=== PATIENT | male | born 1965 | race Caucasian/White ===

== ENCOUNTER 2017-11-12 10:30 | Observation (INO) | payer OTHER, MEDICARE ==
[~2017-11-12] VITALS: Ht 188 cm; Wt 118.6 kg
[2017-11-12 11:01] LABS: BASOPHILS ABSOLUTE AUTO 0.03 K/mm3 (0.00-0.23); BASOPHILS PERCENT AUTO 0 % (0-2); EOSINOPHILS ABSOLUTE AUTO 0.18 K/mm3 (0.00-0.68); EOSINOPHILS PERCENT AUTO 1 % (0-6); Hematocrit 42.4 % (37.0-53.0); Hemoglobin 14.7 g/dL (13.5-17.5); IMMATURE GRAN ABSOLUTE AUTO 0.08 K/mm3 (0.00-0.10); IMMATURE GRAN PERCENT AUTO 1 % (0-1); LYMPHOCYTES ABSOLUTE AUTO 1.92 K/mm3 (0.84-5.20); LYMPHOCYTES PERCENT AUTO 15 % (21-46); MONOCYTES ABSOLUTE AUTO 0.84 K/mm3 (0.16-1.47); MONOCYTES PERCENT AUTO 7 % (4-13); Mean Corpuscular HGB 32.2 pg (26.0-34.0); Mean Corpuscular HGB Conc 34.7 g/dL (31.5-36.5); Mean Corpuscular Volume 93 fL (80-100); Mean Platelet Volume 10.2 fL (9.1-12.4); NEUTROPHILS ABSOLUTE AUTO 9.53 K/mm3 (1.96-9.15); NEUTROPHILS PERCENT AUTO 76 % (41-73); Platelet Count 190 K/mm3 (150-400); RDW Coefficient Variation 11.9 % (11.7-14.2); RDW Standard Deviation 40.3 fL (35.1-46.3); Red Blood Cell Count 4.57 M/mm3 (4.30-5.90); White Blood Cell Count 12.58 K/mm3 (4.00-11.30)
[2017-11-12 11:22] LABS: Base Excess Venous -2.1 mmol/L; Bicarbonate Venous 22.1 mmol/L (24.0-30.0); PCO2 Venous 46.4 mmHg (38-42); PO2 Venous 51.9 mmHg (38-42); pH Blood Venous 7.32 (7.34-7.37)
[2017-11-12 11:25] LABS: Alanine Aminotransfer (ALT/SGP 77 U/L (12-78); Albumin, Blood 3.8 g/dL (3.4-5.0); Albumin/Globulin Ratio 1.2 (0.8-1.8); Alk Phos 79 U/L (50-136); Anion Gap 7 mmol/L (6-16); Aspartate Aminotrans (AST/SGOT 40 U/L (12-37); Bilirubin, Total 0.5 mg/dL (0.1-1.0); Blood Urea Nitrogen 19 mg/dL (8-24); Bun/Creatinine Ratio 15.7 (12.0-20.0); CO2, Blood 24 mmol/L (21-32); Calcium, Blood 8.7 mg/dL (8.5-10.1); Chloride, Blood 110 mmol/L (98-108); Creatinine, Blood 1.21 mg/dL (0.60-1.20); Ethanol (Alcohol), Blood, Med <3 mg/dL; Globulin, Blood 3.1 g/dL (2.2-4.0); Glomerular Filtration Rate >60 (60-); Glucose, Blood 268 mg/dL (70-99); Potassium, Blood 4.1 mmol/L (3.5-5.5); Sodium, Blood 141 mmol/L (136-145); Total Protein, Blood 6.9 g/dL (6.4-8.2); Troponin I <0.015 ng/mL (0.000-0.040)
[2017-11-12 12:42] LABS: U Amphetamine Screen Not Detected; U Barbituate Screen Not Detected; U Benzodiazapine Screen Not Detected; U Buprenorphine Screen Not Detected; U Cannabinoids Screen DETECTED; U Cocaine Screen Not Detected; U Methadone Screen Not Detected; U Methamphetamine Screen Not Detected; U Opiates Screen Not Detected; U Oxycodone Screen Not Detected; U Phencyclidine Screen Not Detected; U Propoxyphene Screen Not Detected
[2017-11-12 13:37] LABS: PCO2 Arterial 38.8 mmHg (35-45); PO2 Arterial 83.6 mmHg (80-100); pH Blood Arterial 7.37 (7.35-7.45)
[2017-11-12 14:40] LABS: International Normalized Ratio 1.04; Prothrombin Time Results 10.8 Sec (9.7-11.5)
[2017-11-12] MEDS ORDERED: [UNRECOGNIZED DRUG - OTHER] PO (16:36)
[2017-11-12] MEDS ORDERED: CLON1 PO (16:36)
[2017-11-12] MEDS ORDERED: Acetaminophen325 M1 PO (16:38)
[2017-11-12] MEDS ORDERED: IBUP400 PO (16:39)
[2017-11-12] MEDS ORDERED: LISI20 PO (16:40)
[2017-11-12] MEDS ORDERED: BENGAY113 GM TOP (16:42)
[2017-11-12] MEDS ORDERED: Omeprazole20 M1 PO (16:43)
[2017-11-12] MEDS ORDERED: QUET300 PO (16:45)
[2017-11-12 18:53] LABS: Source, Urine Clean Catch
[2017-11-12 18:55] LABS: Appearance, Urine Clear (Clear); Bilirubin, Urine Neg (Neg); Blood, Urine Neg (Neg); Color, Urine Yellow (P-Yellow); Glucose Qualitative, Urine 4+ (Neg); Ketones, Urine Neg (Neg); Leukocyte Esterase, Urine Neg (Neg); Nitrite, Urine Neg (Neg); Protein, Urine 1+ (Neg); Specific Gravity, Urine 1.015 (1.003-1.022); Urobilinogen, Urine NORM (Normal)
[2017-11-12 19:00] LABS: Glucose, CSF 137 mg/dL (40-70)
[2017-11-12 19:30] LABS: Color, CSF Pink (No Color); RBC Count, CSF 5085 /mm3 (0-0); WBC Count, CSF 1 /mm3 (0-5)
[2017-11-12 19:31] LABS: Appearance, CSF Hazy (Clear)
[2017-11-12 19:55] LABS: Thyroid Stimulating Hormone 2.26 uIU/mL (0.360-4.800)
[2017-11-14 05:24] LABS: BASOPHILS ABSOLUTE AUTO 0.03 K/mm3 (0.00-0.23); BASOPHILS PERCENT AUTO 0 % (0-2); EOSINOPHILS ABSOLUTE AUTO 0.28 K/mm3 (0.00-0.68); EOSINOPHILS PERCENT AUTO 3 % (0-6); Hematocrit 39.2 % (37.0-53.0); Hemoglobin 13.8 g/dL (13.5-17.5); IMMATURE GRAN ABSOLUTE AUTO 0.06 K/mm3 (0.00-0.10); IMMATURE GRAN PERCENT AUTO 1 % (0-1); LYMPHOCYTES ABSOLUTE AUTO 3.32 K/mm3 (0.84-5.20); LYMPHOCYTES PERCENT AUTO 36 % (21-46); MONOCYTES ABSOLUTE AUTO 0.86 K/mm3 (0.16-1.47); MONOCYTES PERCENT AUTO 9 % (4-13); Mean Corpuscular HGB 31.9 pg (26.0-34.0); Mean Corpuscular HGB Conc 35.2 g/dL (31.5-36.5); Mean Corpuscular Volume 91 fL (80-100); Mean Platelet Volume 10.3 fL (9.1-12.4); NEUTROPHILS ABSOLUTE AUTO 4.77 K/mm3 (1.96-9.15); NEUTROPHILS PERCENT AUTO 51 % (41-73); Platelet Count 182 K/mm3 (150-400); RDW Coefficient Variation 11.5 % (11.7-14.2); Red Blood Cell Count 4.33 M/mm3 (4.30-5.90); White Blood Cell Count 9.32 K/mm3 (4.00-11.30)
[2017-11-14 05:56] LABS: Alanine Aminotransfer (ALT/SGP 73 U/L (12-78); Albumin, Blood 3.2 g/dL (3.4-5.0); Alk Phos 90 U/L (50-136); Anion Gap 9 mmol/L (6-16); Aspartate Aminotrans (AST/SGOT 43 U/L (12-37); Bilirubin, Total 0.3 mg/dL (0.1-1.0); Blood Urea Nitrogen 15 mg/dL (8-24); Bun/Creatinine Ratio 19.5 (12.0-20.0); CO2, Blood 24 mmol/L (21-32); Calcium, Blood 8.4 mg/dL (8.5-10.1); Chloride, Blood 108 mmol/L (98-108); Creatinine, Blood 0.77 mg/dL (0.60-1.20); Globulin, Blood 3.3 g/dL (2.2-4.0); Glomerular Filtration Rate >60 (60-); Glucose, Blood 233 mg/dL (70-99); Potassium, Blood 3.7 mmol/L (3.5-5.5); Sodium, Blood 141 mmol/L (136-145); Total Protein, Blood 6.5 g/dL (6.4-8.2)
[2017-11-14 12:56] LABS: Cryptococcus Neoformans/Gattii Not Detected (NOT DETECT); Enterovirus Not Detected (NOT DETECT); Escherichia Coli K1 Not Detected (NOT DETECT); Haemophilus Influenza Not Detected (NOT DETECT); Herpes Simplex Virus 1 Not Detected (NOT DETECT); Herpes Simplex Virus 2 Not Detected (NOT DETECT); Human Herpesvirus 6 Not Detected (NOT DETECT); Human Parechovirus Not Detected (NOT DETECT); Listeria Monocytogenes Not Detected (NOT DETECT); Neisseria Meningitidis Not Detected (NOT DETECT); Streptococcus Agalactiae Not Detected (NOT DETECT); Streptococcus Pneumoniae Not Detected (NOT DETECT); Varicella Zoster Virus Not Detected (NOT DETECT)
[2017-11-14] MEDS ORDERED: GABA300 PO (13:07)
[2017-11-14] MEDS ORDERED: DULO60 PO (14:02)
[2017-11-14] MEDS ORDERED: GLIP5ER PO (15:07)
== END 2017-11-14 15:23 | disposition home or self-care (01) ==
LOC: ER 10:30 → PCU 10:31 → MEDS 10:31 → PCU 10:31 → ER 13:15 → MEDS 13:15 → PCU 15:43 → MEDS 15:50 → PCU 17:20 → MEDS 17:28 → PCU 11-13 14:16 → MEDS 11-13 14:16
PROVIDERS: Emergency Medicine; Internal Medicine
DX: G93.40 Encephalopathy, unspecified (principal); E11.9 Type 2 diabetes mellitus without complications; I10 Essential (primary) hypertension; R19.7 Diarrhea, unspecified; F17.210 Nicotine dependence, cigarettes, uncomplicated; F43.10 Post-traumatic stress disorder, unspecified; Z79.84 Long term (current) use of oral hypoglycemic drugs; Z79.899 Other long term (current) drug therapy; Z79.01 Long term (current) use of anticoagulants
CPT/HCPCS: 36415; 36600; 51702; 62270; 62284; 70450; 70496; 70498; 70553; 71045; 77003; 77012; 80053; 82140; 82607; 82803; 82945; 82947; 84145; 84157; 84443; 84484; 85025; 85610; 85651; 85730; 87070; 87205; 87389; 87483; 89051; 93005; 93010; 96361; 96365; 96366; 96372; 96374; 96375; 99285; A9577; G0378; G0480; J1650; J2310; J7030; J8499; Q9966; Q9967

== ENCOUNTER 2022-03-19 07:08 | Day surgery (SDC) | payer MEDICARE, OTHER ==
[~2022-03-19] VITALS: Ht 188 cm; Wt 97.5 kg
[~2022-03-19 07:08] MED LIST: Acetaminophen325 M1 PO; BENGAY113 GM TOP; CLON1 PO; DULO60 PO; GABA300 PO; GLIP5ER PO; IBUP400 PO; LISI20 PO; Omeprazole20 M1 PO; QUET300 PO; [UNRECOGNIZED DRUG - OTHER] PO
[2022-03-19] MEDS ORDERED: Voltaren100 GM (08:10)
[2022-03-19] MEDS ORDERED: LOSA25 PO (08:11)
[2022-03-19] MEDS ORDERED: LISI20 PO (08:11)
--- NOTE | 2022-03-19 08:32 | NUR ---
03/19/22 0832 MYRNA PLATT 30MLS OF BUPIVACAINE 0.5% WITH EPI 1:200,000 POURED ONTO STERILE FIELD FOR USE DURING CASE.
--- NOTE | 2022-03-19 10:37 | NUR ---
03/19/22 1037 GINA ARROYO 25MCG OF FENTANYL GIVEN VIA IV PUSH. REPORTS PAIN 03/03. BP 155/88
== END 2022-03-19 11:37 | disposition home or self-care (01) ==
LOC: ORSCSDS 07:08
PROVIDERS: Podiatrist Foot & Ankle Surgery
PROC: 0SGK04Z Fusion of Right Tarsometatarsal Joint with Internal Fixation Device, Open Approach (ICD-10-PCS; principal; 2022-03-19 08:30)
PROC: 0SGH04Z Fusion of Right Tarsal Joint with Internal Fixation Device, Open Approach (ICD-10-PCS; principal; 2022-03-19 08:30)
DX: M19.071 Primary osteoarthritis, right ankle and foot (principal); I10 Essential (primary) hypertension; E78.5 Hyperlipidemia, unspecified; E11.9 Type 2 diabetes mellitus without complications; Z87.891 Personal history of nicotine dependence; F41.8 Other specified anxiety disorders; Z79.899 Other long term (current) drug therapy
CPT/HCPCS: 82947; A9270; C1713; C1734; J0171; J0690; J2250; J2704; J2795; J3010; J7120

== ENCOUNTER 2023-03-03 11:44 | Inpatient (IN) | payer MEDICARE, OTHER ==
[~2023-03-03] VITALS: Ht 188 cm; Wt 96.0 kg
[~2023-03-03 11:44] MED LIST changes: +LOSA25 PO; +Voltaren100 GM
[2023-03-03 12:45] LABS: BASOPHILS ABSOLUTE AUTO 0.04 K/mm3 (0.00-0.23); BASOPHILS PERCENT AUTO 0 % (0-2); EOSINOPHILS ABSOLUTE AUTO 0.05 K/mm3 (0.00-0.68); EOSINOPHILS PERCENT AUTO 0 % (0-6); Hemoglobin 14.6 g/dL (13.5-17.5); IMMATURE GRAN ABSOLUTE AUTO 0.08 K/mm3 (0.00-0.10); IMMATURE GRAN PERCENT AUTO 1 % (0-1); LYMPHOCYTES ABSOLUTE AUTO 0.88 K/mm3 (0.84-5.20); LYMPHOCYTES PERCENT AUTO 6 % (21-46); MONOCYTES ABSOLUTE AUTO 1.59 K/mm3 (0.16-1.47); MONOCYTES PERCENT AUTO 11 % (4-13); Mean Corpuscular HGB 31.7 pg (26.0-34.0); Mean Corpuscular HGB Conc 35.6 g/dL (31.5-36.5); Mean Corpuscular Volume 89 fL (80-100); Mean Platelet Volume 9.7 fL (9.1-12.4); NEUTROPHILS ABSOLUTE AUTO 12.29 K/mm3 (1.96-9.15); NEUTROPHILS PERCENT AUTO 82 % (41-73); Platelet Count 202 K/mm3 (150-400); RDW Coefficient Variation 12.4 % (11.7-14.2); RDW Standard Deviation 40.3 fL (35.1-46.3); White Blood Cell Count 14.93 K/mm3 (4.00-11.30)
[2023-03-03 12:57] LABS: Albumin, Blood 3.5 g/dL (3.4-5.0); Bilirubin, Total 0.8 mg/dL (0.1-1.0); Bun/Creatinine Ratio 14.9 (12.0-20.0); Calcium, Blood 8.8 mg/dL (8.5-10.1); Creatinine, Blood 0.87 mg/dL (0.60-1.20); Globulin, Blood 3.6 g/dL (2.2-4.0); Potassium, Blood 3.6 mmol/L (3.5-5.5); Total Protein, Blood 7.1 g/dL (6.4-8.2)
[2023-03-03 16:50] VITALS: BP 144/79
--- NOTE | 2023-03-03 18:33 | NUR ---
1650 RECEIVED PT TO RM 346 VIA GURARISTEO FROM ER. PT IS A&O, ABLE TO TX SELF TO BED. RECEIVED REPORT FROM VALERIA VIZCARRA. PT TO ER AFTER GOING TO URGENT CARE TODAY FOR C/O R FOOT PAIN. PT WITH DIABETIC FOOT ULCER ON L FOOT; PICTURE ON CHART. R FOOT/ANKLE SWOLLEN AND RED; WAS TO HAVE HAD SX IN AM BY DR KENNY, NOW ON HOLD. IV ABX ORDERED EARLY TODAY. STARTED UPON ADMIT TO . ADDITIONAL IV PLACED FOR IVF'S AND IV ABX, PER DR ALVAREZ. PT MEDICATED FOR C/O PAIN. RESTING QUIETLY TO L SIDE AT THIS TIME. HX HTN, DM II, PTSD, SMOKER, AND NEUROPATHY. AT BS. CALL LT IN REACH.
[2023-03-03 20:54] VITALS: BP 105/59
--- NOTE | 2023-03-04 01:54 | NUR ---
SHIFT SUMMERY. PT RESTING IN BED MEDICATED FOR PAIN TO RIGHT FOOT X 2 TONIGHT. PT HAS HAD A FEVER BUT IS GOING DOWN. PT ABLE TO SLEEP INTERMITNTLY. CALL LIGHT IN REACH . PT VOIDING IN URINAL. REVIEWED FIRE SAFETY.
[2023-03-04 04:57] LABS: BASOPHILS ABSOLUTE AUTO 0.04 K/mm3 (0.00-0.23); BASOPHILS PERCENT AUTO 0 % (0-2); EOSINOPHILS ABSOLUTE AUTO 0.02 K/mm3 (0.00-0.68); EOSINOPHILS PERCENT AUTO 0 % (0-6); Hematocrit 38.7 % (37.0-53.0); Hemoglobin 13.3 g/dL (13.5-17.5); IMMATURE GRAN ABSOLUTE AUTO 0.07 K/mm3 (0.00-0.10); IMMATURE GRAN PERCENT AUTO 1 % (0-1); LYMPHOCYTES ABSOLUTE AUTO 0.92 K/mm3 (0.84-5.20); LYMPHOCYTES PERCENT AUTO 7 % (21-46); MONOCYTES ABSOLUTE AUTO 1.23 K/mm3 (0.16-1.47); MONOCYTES PERCENT AUTO 10 % (4-13); Mean Corpuscular HGB Conc 34.4 g/dL (31.5-36.5); Mean Corpuscular Volume 90 fL (80-100); Mean Platelet Volume 9.7 fL (9.1-12.4); NEUTROPHILS ABSOLUTE AUTO 10.34 K/mm3 (1.96-9.15); NEUTROPHILS PERCENT AUTO 82 % (41-73); Platelet Count 181 K/mm3 (150-400); RDW Coefficient Variation 12.6 % (11.7-14.2); RDW Standard Deviation 41.4 fL (35.1-46.3); Red Blood Cell Count 4.29 M/mm3 (4.30-5.90); White Blood Cell Count 12.62 K/mm3 (4.00-11.30)
[2023-03-04 05:08] VITALS: BP 92/70
--- NOTE | 2023-03-04 05:55 | NUR ---
PT CONTINUING TO SLEEP BUT AWAKENS WHEN NEEDING TO VOID. CALL LIGHT IN REACH.
[2023-03-04 06:38] LABS: Bun/Creatinine Ratio 14.1 (12.0-20.0); Calcium, Blood 8.5 mg/dL (8.5-10.1); Potassium, Blood 4.1 mmol/L (3.5-5.5)
[2023-03-04 07:36] VITALS: BP 118/78
--- NOTE | 2023-03-04 14:49 | NUR ---
SHIFT SUMMARY PT RESTING QUIETLY AT START OF SHIFT. WOKE EASILY FOR CARE. SOME IMPROVEMENT IN L FOOT REDNESS AND SWELLING; WOUND CX OBTAINED PER ORDERS. R FOOT/ANKLE REMAINS PAINFUL AND SWOLLEN. PT STATED THAT HE IS COMPLETELY NWB TO R FOOT D/T HARDWARE DISPLACEMENT. IV ABX'S GIVEN PER EMAR FOR L FOOT INFECTION. PT EATING, DRINKING, AND VOIDING WELL; BOWEL CARE GIVEN FOR C/O CONSTIPATION. DR ALVAREZ IN THIS AM TO SEE PT AND DISCUSS PLAN OF CARE. CT OF L FOOT ORDERED AND COMPLETED. SLIDE TX TO SONNY FOR IMAGING AND LATER BACK TO BED. PT NAPPING OFF AND ON TODAY. C/O CHILLS AND THEN TOO HOT. MEDICATED FOR C/O PAIN TO R FOOT/ANKLE AND LATER FOR ROSE. PT'S TO RM THIS AFTERNOON, BRINGING IN FAMILY DOG. PT AWAKE WATCHING TV AT THIS TIME. NO C/O. CALL LT IN REACH.
[2023-03-04 15:08] VITALS: BP 91/65
[2023-03-04 20:57] VITALS: BP 81/48
[2023-03-05 01:38] LABS: Vancomycin, Trough 9.7 ug/mL (5.0-10.0)
[2023-03-05 01:46] LABS: BASOPHILS ABSOLUTE AUTO 0.03 K/mm3 (0.00-0.23); BASOPHILS PERCENT AUTO 0 % (0-2); EOSINOPHILS ABSOLUTE AUTO 0.05 K/mm3 (0.00-0.68); EOSINOPHILS PERCENT AUTO 1 % (0-6); Mean Corpuscular HGB 31.7 pg (26.0-34.0); Mean Corpuscular HGB Conc 35.3 g/dL (31.5-36.5); Mean Corpuscular Volume 90 fL (80-100); Platelet Count 173 K/mm3 (150-400); RDW Coefficient Variation 12.3 % (11.7-14.2); RDW Standard Deviation 40.8 fL (35.1-46.3); Red Blood Cell Count 3.79 M/mm3 (4.30-5.90); White Blood Cell Count 10.51 K/mm3 (4.00-11.30)
[2023-03-05 01:48] LABS: Bun/Creatinine Ratio 20.2 (12.0-20.0); Calcium, Blood 8.2 mg/dL (8.5-10.1); Creatinine, Blood 1.24 mg/dL (0.60-1.20)
[2023-03-05 02:30] LABS: IMMATURE GRAN ABSOLUTE AUTO 0.11 K/mm3 (0.00-0.10); IMMATURE GRAN PERCENT AUTO 1 % (0-1); LYMPHOCYTES ABSOLUTE AUTO 1.13 K/mm3 (0.84-5.20); LYMPHOCYTES PERCENT AUTO 11 % (21-46); MONOCYTES ABSOLUTE AUTO 1.58 K/mm3 (0.16-1.47); MONOCYTES PERCENT AUTO 15 % (4-13); NEUTROPHILS ABSOLUTE AUTO 7.61 K/mm3 (1.96-9.15); NEUTROPHILS PERCENT AUTO 72 % (41-73)
[2023-03-05 05:41] VITALS: BP 91/61
--- NOTE | 2023-03-05 06:14 | NUR ---
PT MORE STABLE AT END OF SHIFT THAN START OF SHIFT. FEVER AND BLOOD PRESSURE ARE STABILIZING. PT COMPLAINS OF CONSTANT PAIN TO RLE. AOX4, PLEASANT, CALLS APPROPRIATELY. SWELLING, REDNESS, TENDERNESS STILL PRESENT IN BLE. FIRE SAFETY REVIEWED.
[2023-03-05 07:28] VITALS: BP 96/64
[2023-03-05 15:38] VITALS: BP 95/56
--- NOTE | 2023-03-05 18:01 | NUR ---
SHIFT SUMMARY: C/O 01/31 PAIN IN R FOOT/ANKLE; MEDICATED PER EMAR WITH SOME RELIEF. HAS 3+ TIGHT EDEMA IN R FOOT/ANKLE, 2+ IN L FOOT/ANKLE. LBM 03/01/23, IS TAKING BOWEL MEDS, DENIES ABD DISCOMFORT, NAUSEA. REPEAT BLOOD CULTURES DRAWN THIS EVENING. WAS ABLE TO SHOWER THIS MORNING. GOOD APPETITE, TOLERATING PO.
--- NOTE | 2023-03-05 19:03 | NUR ---
PATIENT SUDDENLY C/O 10/10 PAIN IN R KNEE, IS MOANING AND WRITHING ON THE BED. RLE APPEARS MORE EDEMATOUS, WARM, AND ERYTHEMATOUS THAN MY ASSESSMENT THIS MORNING. HE STATED "IT FEELS LIKE ONE OF MY SCREWS IS POKING MY KNEE." SPOKE TO DR. MCFADDEN BY PHONE TO REPORT THESE SXS; PROVIDER ORDERED DOSE OF KETOROLAC IV NOW AND WILL COME TO ASSESS PT. ENDORSED TO Bello BAGLEY RN DURING BEDSIDE REPORT.
[2023-03-05 19:30] VITALS: BP 98/75
--- NOTE | 2023-03-06 04:15 | NUR ---
INCREASED PAIN LATE DURING DAY SHIFT YESTERDAY. TORADOL ORDERED, IMAGING ORDERED, AWAITING RESULTS/ORDERS. PRN PAIN MEDS EFFECTIVE, DENIES SIGNIFICANT PAIN AROUND 0230 EVEN THOUGH PRN MEDS AVAILABLE. STATES HE "FEELS LIKE A NEW MAN." R FOOT STILL RED/SWOLLEN. NO BM SINCE ADMITTING TO UNIT, STATES HE HAD 2 MIRALAX DOSES YESTERDAY, SENNA AND COLACE GIVEN THIS SHIFT. FIRE SAFETY REVIEWED.
[2023-03-06 05:07] VITALS: BP 109/67
[2023-03-06 05:22] LABS: BASOPHILS ABSOLUTE AUTO 0.02 K/mm3 (0.00-0.23); BASOPHILS PERCENT AUTO 0 % (0-2); EOSINOPHILS ABSOLUTE AUTO 0.12 K/mm3 (0.00-0.68); EOSINOPHILS PERCENT AUTO 1 % (0-6); Hematocrit 33.6 % (37.0-53.0); Hemoglobin 11.9 g/dL (13.5-17.5); IMMATURE GRAN ABSOLUTE AUTO 0.04 K/mm3 (0.00-0.10); IMMATURE GRAN PERCENT AUTO 0 % (0-1); LYMPHOCYTES ABSOLUTE AUTO 1.06 K/mm3 (0.84-5.20); LYMPHOCYTES PERCENT AUTO 12 % (21-46); MONOCYTES ABSOLUTE AUTO 1.24 K/mm3 (0.16-1.47); MONOCYTES PERCENT AUTO 14 % (4-13); Mean Corpuscular HGB 31.1 pg (26.0-34.0); Mean Corpuscular HGB Conc 35.4 g/dL (31.5-36.5); Mean Corpuscular Volume 88 fL (80-100); Mean Platelet Volume 9.9 fL (9.1-12.4); NEUTROPHILS ABSOLUTE AUTO 6.61 K/mm3 (1.96-9.15); NEUTROPHILS PERCENT AUTO 73 % (41-73); Platelet Count 178 K/mm3 (150-400); RDW Coefficient Variation 12.5 % (11.7-14.2); Red Blood Cell Count 3.83 M/mm3 (4.30-5.90); White Blood Cell Count 9.09 K/mm3 (4.00-11.30)
[2023-03-06 06:08] LABS: Bun/Creatinine Ratio 22.3 (12.0-20.0); Calcium, Blood 8.1 mg/dL (8.5-10.1); Creatinine, Blood 0.9 mg/dL (0.60-1.20); Potassium, Blood 3.8 mmol/L (3.5-5.5)
[2023-03-06 07:26] VITALS: BP 99/59
[2023-03-06 15:56] VITALS: BP 92/78
--- NOTE | 2023-03-06 17:23 | NUR ---
SHIFT SUMMARY: NO ACUTE EVENTS. PAIN IS BETTER CONTROLLED TODAY. R FOOT/ANKLE VERY EDEMATOUS AND TIGHT, RED AREA ON LATERAL ASPECT. L SECOND TOE WOUND HAS OPENED AND HAS SMALL AMT SS EXUDATE; INPT WOUND CONSULT PLACED. HAD LARGE BM TODAY AFTER SUPPOSITORY, FEELS MUCH BETTER. DVT STUDY NEGATIVE FOR DVT IN RLE. TOLERATING PO INTAKE, DENIED NAUSEA. GIVEN FWW TO HELP WITH TRANSFERS HE IS NWB ON R FOOT.
[2023-03-06 19:29] VITALS: BP 102/67
--- NOTE | 2023-03-07 05:28 | NUR ---
NO ACUTE CHANGES NOTED. PAIN MEDS GIVEN PRN, S/SX OF INFECTION STILL PRESENT BUT IMPROVED IN THE PAST 2 DAYS, ADEQUATE URINE OUTPUT. BOWEL MEDS EFFECTIVE LAST NIGHT, LAST BM ON 03/06. FIRE SAFETY REVIEWED.
[2023-03-07 07:26] VITALS: BP 116/68
--- NOTE | 2023-03-07 09:15 | NUR ---
0830-RN NOTIFIED FROM [facility] THAT PT WOULD LIKE PAIN MEDS. 0840-RN ENTERS PT'S ROOM TO ADMINISTER MORNING MEDS AND X2 PERCOCET PULLED FOR PT. -IMMEDIATELY UPON ENTERING PT'S ROOM PT YELLS, "WHAT THE FUCK! I HAVE BEEN WAITING FOR TWO HOURS FOR MY PAIN MEDS! I'M FUCKING HURTING, SHIT!" -RN STATES, "PLEASE DO NOT CUSS AT ME, I HAVE YOUR PAIN MEDS RIGHT HERE. I FOUND OUT YOU NEEDED PAIN MEDS FROM MY CUSTOMER RESOURCE SPECIALIST 10 MINUTES AGO AND SOON I WAS AVAILABLE TO GET THEM, I PULLED THEM AND CAME DIRECTLY HERE." -PT STATES, "I SHOULDN'T HAVE TO WAIT OVER FIVE MINUTES FOR PAIN MEDS! ARE YOU SAYING THIS IS MY FAULT? -RN REPLIED, "I AM NOT PLACING BLAME ON ANYONE. YOU NEED TO BRING IT DOWN AND STOP YELLING AT ME." -AT THIS TIME RN FELT ATTACKED VERBALLY AND PT WAS INCREASINGLY GETTING UPSET, SO THIS RN OPENED PT'S DOOR AND CURTAINS SO STAFF COULD HEAR IF RN NEEDED HELP AND SO THAT PT WOULD SEE OTHER STAFF WERE LISTENING TO THE CONVERSATION. -PT DID STOP YELLING, BUT CONTINUED TO BE VERBALLY ABUSIVE TO RN. -PT ASKED, "HAVEN'T MY PAIN MEDS BEEN DUE FOR A WHILE ANYWAY?" -RN EXPLAINED THAT PRN MEDS ARE GIVEN ON AN NEEDED BASIS AND ARE NOT SCHEDULED. -PT RESPONDED W/, "I'VE BEEN HERE FOR FIVE FREAKING DAYS AND I'M JUST NOW FINDING THIS OUT?!" -RN RESPONDED WITH, "I'M SORRY YOU ARE JUST FINDING THIS OUT. YOUR PAIN MEDS ARE NOT SCHEDULED." -RN DISCUSSED ALL MORNING MEDS ABOUT TO BE ADMINISTERED. PT STATED, "I HAVE NO IDEA WHY YOU ARE GIVING ME ALL OF THESE MEDS. I HAVE NEVER BEEN GIVEN ALL OF THESE MEDS BEFORE AT THE SAME TIME." -RN LOOKED BACK AT THE PAST 3 DAYS FOR MED ADMINISTRATION AND EXPLAINED TO THE PT THAT ALL MEDS HAD BEEN ADMINISTERED THE PAST THREE DAYS. -PT RESPONDED WITH, "OKAY." -RN CONTINUED WITH MED ADMINISTRATION WITHOUT ANY FURTHER VERBAL ABUSE/ISSUES. PT CALMED DOWN.
--- NOTE | 2023-03-07 12:02 | NUR ---
RN RETURNED FROM BREAK AT 1120 TO FIND OUT THAT PT HAD LEFT THE FLOOR. PT DEMANDED HE NEEDED TO GO TO THE [facility]. RN CHECKED THE [facility] AND PT WAS NOT DOWN THERE. RN REPORTED PT MISSING TO CHARGE NURSES AND TECHNICIAN HELPER INSTRUMENT. PT WAS PAGED OVERHEAD TO PLEASE RETURN TO HIS ROOM. PT RETURNED TO HIS ROOM AT 1150. PT LEFT HIS ROOM AT 1105. PT WAS GONE FROM HIS ROOM FOR 45 MINUTES. PT WAS INFORMED THAT HE CANNOT LEAVE THE FLOOR. PT INSTRUCTED ON HOSPITAL POLICY FOR LEAVING CAMPUS/GOING TO THE [facility]. PT VERBALIZED UNDERSTANDING. DR. BOCANEGRA NOTIFIED.
[2023-03-07 15:25] VITALS: BP 105/74
--- NOTE | 2023-03-07 17:28 | NUR ---
SUMMARY- REFER TO ABOVE NOTES IN THE SHIFT FOR DETAILS ON BEHAVIOR ISSUES W/PT TODAY. PT HAS CALMED DOWN AND IS MODERATELY APPROPRIATE NOW. REPORT GIVEN TO CARMITA RIVAS FOR TRANSFER TO ROOM 357.
[2023-03-07 19:37] VITALS: BP 106/53
[2023-03-08 05:03] VITALS: BP 113/79
[2023-03-08 05:55] LABS: Hematocrit 34.2 % (37.0-53.0); Hemoglobin 11.9 g/dL (13.5-17.5); Mean Corpuscular HGB 31.4 pg (26.0-34.0); Mean Corpuscular HGB Conc 34.8 g/dL (31.5-36.5); Mean Corpuscular Volume 90 fL (80-100); Mean Platelet Volume 9.7 fL (9.1-12.4); Platelet Count 246 K/mm3 (150-400); RDW Coefficient Variation 12.9 % (11.7-14.2); RDW Standard Deviation 42.9 fL (35.1-46.3); Red Blood Cell Count 3.79 M/mm3 (4.30-5.90)
[2023-03-08 06:24] LABS: Bun/Creatinine Ratio 19.6 (12.0-20.0); Calcium, Blood 8.4 mg/dL (8.5-10.1); Creatinine, Blood 0.77 mg/dL (0.60-1.20); Potassium, Blood 4.3 mmol/L (3.5-5.5)
[2023-03-08 06:34] LABS: BAND PERCENT MAN 6 % (0-8); BASOPHILS PERCENT MAN 0 % (0-2); EOSINOPHILS ABSOLUTE MAN 0.23 K/mm3 (0.00-0.68); EOSINOPHILS PERCENT MAN 3 % (0-6); LYMPHOCYTES ABSOLUTE MAN 1.97 K/mm3 (0.84-5.20); LYMPHOCYTES PERCENT MAN 25 % (21-46); MONOCYTES ABSOLUTE MAN 0.39 K/mm3 (0.16-1.47); MONOCYTES PERCENT MAN 5 % (4-13); NEUTROPHILS ABSOLUTE MAN 5.29 K/mm3 (1.96-9.15); SEG NEUTROPHILS PERCENT MAN 61 % (41-73); TOTAL CELLS COUNTED 100
--- NOTE | 2023-03-08 07:28 | NUR ---
A/O X4 VSS PT IS INDEPENDANT IN ROOM USING WALKER AT BEDSIDE. ONLY COMPLAINT TODAY WAS PAIN TO RIGHT FOOT. PT WAS COVERED FOR PAIN WITH MD ORDERS. ENC NON WEIGHT BEARING TO RIGHT FOOT ALSO TO KEEP ELEVATED. NEW IV WAS STARTED TO RIGHT FA HAROLDO WELL. WILL CONT MONITORING. REORT GIVEN TO ONCOMING SHIFT
[2023-03-08 07:41] VITALS: BP 105/66
[2023-03-08 19:37] VITALS: BP 98/67
[2023-03-09 05:02] VITALS: BP 118/76
--- NOTE | 2023-03-09 06:12 | NUR ---
SHIFT SUMMARY; NO ACUTE CHANGES OVERNIGHT. THE PT IS AXO X4 AND USES THE URINAL INDEPENDENTLY T/O THE NIGHT. THE PT HAS ENDORSED SOME PAIN TO BILAT FEET BUT DENIES THE NEED FOR ANY PRN PAIN MEDICATION. THE PT HAS BEEN SLEEPING FOR THE MAJORITY OF THE NIGHT. THE PT HAS BEEN NPO SINCE MIDNIGHT IN PREPERATION FOR 2ND TOE AMPUTATION ON HIS L FOOT TODAY. THE PT DENIES ANY CHEST PAIN/PRESSURE, SOB OR N/V THIS SHIFT. CURRENTLY THE PT IS SLEEPING IN BED WITH THE BED IN THE LOWEST POSITION AND THE CALL LIGHT AT BEDSIDE. FIRE SAFETY MAINTAINED T/O THE NIGHT.
[2023-03-09 07:27] VITALS: BP 116/65
[2023-03-09 07:28] VITALS: BP 116/65
--- NOTE | 2023-03-09 12:52 | NUR ---
Patient is sitting up in bed and alert. He is quiet but explains about his upcoming surgery. He states that he is not up for much conversation. He welcomes pray, which I gladly suppy. He voices much appreciation and asks that I visit him after the surgery. I agree. I will continue to remain available to patient.
--- NOTE | 2023-03-09 14:08 | NUR ---
Received MAD Consult due to "Pt is verbally abusive and swearing at staff. See nursing note from 03/07/23. Behavior is not improving." I spoke with the patient. He relates that he was frustrated and was cussing because he was in pain and hadn't been receiving pain medication in a timely manner. Discussed this behavior and he conceded it wasn't appropriate, stating he isn't usually like this but he was feeling out of control and frustrated due to no hot water for a hot shower, he didn't realize until 2 days ago that he had to request pain medication, "Asking for help is hard. I've never asked anyone for help in my life," and it's hard for him to keep track of when the pain meds are due. We have also restricted his ability to move. He is non-weight bearing on the foot he is having surgery on today. Asked Pastoral care to follow up with him for support. Discussed with Threat Assessment Team, Scotty Grady, Kortney Laughlin, and Chau Mcneill. Spoke with RN, Zaria, and asked that she assess his pain level when it was close to time for his pain medication to be due and to medicate as the pain levels justified. We are also working to try to get him moved to a surgical floor bed after his surgery if one is available. He agreed to improve his behavior towards staff.
[2023-03-09 15:30] VITALS: BP 118/76
--- NOTE | 2023-03-09 15:30 | NUR ---
Into sds via bed. Pt reports 6/10 left foot pain. History, Chart, Medications and Allergies reviewed before start of procedure.Lungs clear T/O to Auscultation. Patient confirms NPO status and agrees with scheduled surgery.
--- NOTE | 2023-03-09 15:43 | NUR ---
RIGHT FOREARM IV #20 FLUSHES WELL-DRESSING RE-INFORCED.
--- NOTE | 2023-03-09 15:45 | NUR ---
SHIFT SUMMARY THIS AM PATIENT EXPRESSING ANGER AT BEING NPO FOR SURGERY, STATING "THIS IS BULLSHIT, FUCK THIS, THIS PLACE HAS BEEN TAKEN OVER BY THE TOGOLESE AND THAT'S WHY YOU GUYS SUCK" REPEATING PHRASES LIKE THIS OVER AND OVER. REFUSED SOME MEDICATIONS THIS SHIFT, OTHERS HELD FOR PROCEDURE. DR. LAN CONTACTED REGARDING PATIENT STATING HE IS NOT GOING TO ADHERE TO NPO DIET, RECOMMENDED TO CONTINUE TO ENCOURAGE ADHERENCE. MAD CONSULT INITIATED DUE TO CONTINUED CUSSING AND POSTURAL BODY LANGUAGE. PATIENT WENT TO SURGERY APPROXIMATELY 1510, ANTIBIOTICS TUBED TO SURGERY PER REQUEST. WILL CONTINUE TO MONITOR
--- NOTE | 2023-03-09 16:33 | NUR ---
03/09/23 1633 Neela Townsend PT PREINJECTED WITH LOCAL BEFORE STERILE PREP.
[2023-03-09 17:08] VITALS: BP 109/79
--- NOTE | 2023-03-09 17:33 | NUR ---
RETURN TO FLOOR PATIENT RETURNED TO FLOOR FROM SURGERY APPROXIMATELY 1705, RECEIVED REPORT FROM ANESTHESIA. PATIENT AWAKE AND ALERT, EATING MEAL. VSS AT THIS TIME. NO C/O PAIN AT THIS TIME.
[2023-03-09 19:24] VITALS: BP 113/73
--- NOTE | 2023-03-10 03:08 | NUR ---
PT REPORTS PAIN IN L FOOT IS EXCRUIATING THIS AM DESPITE RECIEVING PRN PERCOCET AND FENTANYL.
[2023-03-10 04:53] VITALS: BP 103/79
--- NOTE | 2023-03-10 04:56 | NUR ---
SHIFT SUMMARY; PT WITH A LOT OF PAIN LAST NIGHT R/T HIS L 2ND TOE AMPUTATION YESTERDAY. THE PT HAS REQUESTED PRN PAIN MEDICATION FREQUENTLY T/O THE NIGHT. THE PT IS TRYING NOT TO UTILIZE HIS PRN IV FENTANYL BECAUSE HE KNOWS THAT IS NOT A MEDICATION HE CAN GO HOME ON. THE PT IS AXO X4 AND NWB AT THIS TIME. THE PT WAS CAUGHT STANDING UP LAST NIGHT AT BEDSIDE TO USE THE URINAL. I REMINDED THE PT ONCE MORE HE IS TO NOT STAND UP ON HIS FEET AT ALL AT THIS TIME. THE PT HAS A DRESSING ON HIS L FOOT, IT IS INTACT AND THERE IS NO VISIBLE DRAINAGE/BLOOD ON THE DRESSING. THE PT OTHERWISE DENIES ANY CHEST PAIN/PRESSURE, SOB OR N/V. CURRENTLY THE PT IS LAYING IN BED WITH THE BED IN THE LOWEST POSITION AND THE CALL LIGHT AT BEDSIDE. FIRE SAFETY MAINTAINED T/O THE SHIFT.
[2023-03-10 05:20] LABS: BASOPHILS ABSOLUTE AUTO 0.04 K/mm3 (0.00-0.23); BASOPHILS PERCENT AUTO 0 % (0-2); EOSINOPHILS ABSOLUTE AUTO 0.23 K/mm3 (0.00-0.68); EOSINOPHILS PERCENT AUTO 2 % (0-6); Hematocrit 37.3 % (37.0-53.0); Hemoglobin 12.6 g/dL (13.5-17.5); IMMATURE GRAN ABSOLUTE AUTO 0.15 K/mm3 (0.00-0.10); IMMATURE GRAN PERCENT AUTO 2 % (0-1); LYMPHOCYTES ABSOLUTE AUTO 2.22 K/mm3 (0.84-5.20); LYMPHOCYTES PERCENT AUTO 22 % (21-46); MONOCYTES ABSOLUTE AUTO 1.21 K/mm3 (0.16-1.47); MONOCYTES PERCENT AUTO 12 % (4-13); Mean Corpuscular HGB 30.7 pg (26.0-34.0); Mean Corpuscular HGB Conc 33.8 g/dL (31.5-36.5); Mean Corpuscular Volume 91 fL (80-100); Mean Platelet Volume 9.3 fL (9.1-12.4); NEUTROPHILS ABSOLUTE AUTO 6.31 K/mm3 (1.96-9.15); NEUTROPHILS PERCENT AUTO 62 % (41-73); Platelet Count 413 K/mm3 (150-400); RDW Coefficient Variation 12.7 % (11.7-14.2); RDW Standard Deviation 42.5 fL (35.1-46.3); Red Blood Cell Count 4.11 M/mm3 (4.30-5.90); White Blood Cell Count 10.16 K/mm3 (4.00-11.30)
[2023-03-10 05:48] LABS: Bun/Creatinine Ratio 17.2 (12.0-20.0); Calcium, Blood 8.8 mg/dL (8.5-10.1); Creatinine, Blood 0.76 mg/dL (0.60-1.20); Potassium, Blood 4.6 mmol/L (3.5-5.5)
[2023-03-10 07:31] VITALS: BP 110/69
--- NOTE | 2023-03-10 14:37 | NUR ---
Patient is lying in bed and alert. He tells me about his surgery, his family , his career in the and his d/c plan for going to the infusion center daily for 6 weeks. He explains about his change in perspective and appreciates prayer. I encouraged self-care, provided therapeutic listening and prayer. Patient responded well and showed signs of resolve to take better care of himself
[2023-03-10 15:31] VITALS: BP 128/78
--- NOTE | 2023-03-10 18:33 | NUR ---
SHIFT SUMMARY; PATIENT HAD PLEASANT AFFECT DURING THE DAY SHIFT. HE IS AO X 4. REQUESTING PAIN MEDICATIONS X 2 DURING THE DAY. HIS FAMILY DID VISIT TODAY. REQUESTING TO GO OUTSIDE HOWEVER SAID HE PREFERS [facility] NOT GO OUTSIDE. ATTEMPT TO FIND A WHEEL CHAIR FOR THIS PATIENT TO GO AROUND THE UNIT WAS UNSUCCESSFUL. VANESSA VIZCARRA PLACED PICC LINE IN UPPER LEFT ARM. PER KATHRYN WILL NEED TO REMAIN IN THE HOSPITAL FOR ANOTHER 4 DAYS TO RECEIVE ADDITIONAL ANTIBIOTICS PRIOR TO GOING HOME.
[2023-03-10 20:11] VITALS: BP 127/79
[2023-03-11 04:53] VITALS: BP 104/57
[2023-03-11 07:18] VITALS: BP 109/71
--- NOTE | 2023-03-11 08:14 | NUR ---
SHIFT SUMMARY PATIENT A/Ox4, BRIGHT, INTERACTIVE, JOKING WITH STAFF. C/O PAIN TO LEFT FOOT, MEDICATED PER SEP X2 THIS SHIFT. DSG TO LEFT FOOT IS C/D/I, MEREDITH-WRAPPED. CONTINUES ON IV ABx THERAPY FOR RIGHT FOOT INFECTION, NO ASE NOTED. NO ACUTE CHANGES NOTED OVERNIGHT. BED IN LOW POSITION, CALL LIGHT WITHIN REACH.
--- NOTE | 2023-03-11 13:05 | NUR ---
Followed up w/patient post MAD consult. He is feeling much better today. Pain is better, although he is still hesitant to call for pain meds if he has already asked and some time has passed. Encouraged to call again after 10 to 15 minutes. Pleasant, feeling grateful to be recovering. Staff verbalize no behavioral issues. Patient feels like he wasn't himself when he was really ill and in so much pain. Has some loss of memory over the first few days.MAD Consult complete.
[2023-03-11 15:33] VITALS: BP 121/80
--- NOTE | 2023-03-11 17:48 | NUR ---
SHIFT SUMMARY: PATIENT A&OX4. PLEASANT AND COOPERATIVE c CARE. USES CALL LIGHT APPROPRIATELY AND ABLE TO MAKE NEEDS KNOWN. PATIENT REPORTS PAIN /10 TO L FOOT, PAIN WELL CONTROLLED c EMAR PAIN MEDS AND REPOSITIONING T/O SHIFT. SHOWERED AND LINEN CHANGED TODAY. DRESSING CHANGED TO L FOOT DONE BY DR. LAN (STITCH BONDING MACHINE OPERATOR) THIS PM. BS RANGES 131-221, RECEIVED INSULIN PER EMAR COVERAGE. PATIENT RECEIVED SCHEDULED MEDS PER EMAR. VITAL SIGNS REVIEWED. CALL LIGHT IN REACH. PATIENT EDUCATED ON NON SMOKING POLICY, RISK OF INJURY, AND IGNITION SOURCES WHEN O2 IN USE. PATIENT DENIES SMOKING AND VEBALIZED UNDERSTANDING.
[2023-03-12 03:45] VITALS: BP 115/73
--- NOTE | 2023-03-12 05:28 | NUR ---
SHIFT SUMMARY PATIENT A/Ox4, PLEASANT, BRIGHT AFFECT. CONTINUES TO C/O FREQUENT PAIN TO LEFT FOOT. PAIN MANAGED WITH PRN ANALGESIC MEDICATION AND REPOSITIONING. DRESSING TO LEFT FOOT IS C/D/I, WRAPPED IN MEREDITH. PATIENT SITTING UP IN BED AT THIS TIME WATCHING TV, APPEARES TO BE IN NO ACUTE DISTRESS. BED LOCKED, LOW, CALL LIGHT WITHIN REACH.
[2023-03-12 07:15] VITALS: BP 142/99
[2023-03-12 15:02] VITALS: BP 115/74
--- NOTE | 2023-03-12 16:36 | NUR ---
SHIFT SUMMARY: NO NEW ACUTE CHANGES IN PATIENT CONDITION THIS SHIFT. PATIENT A&OX4, PLEASANT AND COOPERATIVE c CARE. PAIN TO L FOOT, WELL CONTROLLED c EMAR PAIN MEDS. BS RANGES 177-207, RECEIVED INSULIN PER EMAR COVERAGE. PATIENT RECEIVED SCHEDULED MEDS PER EMAR. DRESSING TO L FOOT C/D/I. CONTINENCE OF BOWELS AND BLADDER, USES URINAL AT BEDSIDE INDEPENDENTLY. VITAL SIGNS REVIEWED. EATING AND DRINKING WELL. CALL LIGHT IN REACH. PATIENT EDUCATED ON NON SMOKING POLICY, RISK OF INJURY AND IGNITION SOURCES WHEN O2 IN USE. PATIENT DENIES SMOKING AND VERBALIZED UNDERSTANDING.
[2023-03-12 19:13] VITALS: BP 137/86
[2023-03-13 04:09] VITALS: BP 129/75
--- NOTE | 2023-03-13 05:27 | NUR ---
REPORT RECEIVED VERIFIED PT INDEPENDANT IN RM CALL APPROPRIATELY. LEFT FOOT NON WEIGHT-BEARING IS WRAPPED, RT FT SWOLLEN AND AWAITING SURGERY AFTER ANTIBIOTIC REGIMEN IS DONE. PT PAIN WAS COVERD CALL LIGHT WITHIN REACH WILL CALL IF NEEDING ASSISTENCE.
[2023-03-13 07:23] VITALS: BP 107/62
[2023-03-13 15:32] VITALS: BP 117/68
--- NOTE | 2023-03-13 19:48 | NUR ---
SHIFT SUMMARY PT A&OX4, PLEASANT, AND COOPERATIVE. PT REPORTED PAIN TO THE L FOOT AND MANAGED WITH PAIN MEDS PER EMAR. DRESSING ON L FOOT IS C/D/I. PT IS CONTINENT OF URINE AND BOWELS, USES URINAL AT BEDSIDE INDEPENDENTLY. PT IS TOLERATING PO INTAKE. PT'S BLOOD SUGAR MEDICATED PER EMAR. VSS STABLE. CALL LIGHT WITHIN REACH. REPORT GIVEN TO ONCOMING RN.
--- NOTE | 2023-03-13 19:57 | NUR ---
REVIEWED RN NOTES. AGREE WITH NOTES.
--- NOTE | 2023-03-14 06:43 | NUR ---
NO ACUTE CHANGES NOTED FOR MARLON. PLEASANT AND COOPERATIVE WITH CARE. LEFT FOOT BANDAGE INTACT. URINE CLEAR. PT USES URINAL. STATES GETTING BORED AND WAITING FOR ENOUGH IMPROVEMENT TO HAVE HIS ANKLE FIXED.
[2023-03-14 07:55] VITALS: BP 88/61
[2023-03-14 11:06] VITALS: BP 112/72
[2023-03-14 14:42] VITALS: BP 114/75
--- NOTE | 2023-03-14 18:50 | NUR ---
SHIFT SUMMARY: PT IS A 57 YEAR MALE HERE FOR POST OP OF HIS 2ND LEFT TOE BEING AMPUTATED FROM A DIABETIC FOOT ULCER. NEW FINDING OF TYPE 2 DIABETES. HE IS PLEASANT AND COOPERATIVE AND ALERT AND ORIENTATED TO PERSON, PLACE, TIME, AND SITUATION. HE HAS BILATEAL FOOT NEUROPATHY AND HISTORY RIGHT ANKLE FRACTURE AND HARDWARE REPAIR. GOT IN REPORT AND FROM PATIENT THAT THE HARDWARE HAS COLLAPES AND HE HAD BEEN WALKING ON IT FOR MONTHS. HE IS RECEIVING IV ANTIBIOTIC TREATMENT FOR OSTEOMYELITIS AND TREATMENT OF TYPE 2 DIABETES. AWAITING PLAN OF CARE FOR DISCHARGE. DRESSING OF LEFT FOOT LAST CHANGED 03/11/23 AND EVALUTED BY PODIATRY. PT NOT EXPERIENCING DISTRESS, LYING IN BED THROUGHOUT THE DAY AND INDEPENDENT TO THE RESTROOM, NON-WEIGHTBEARING ON LEFT FOOT.
[2023-03-14 20:38] VITALS: BP 123/68
[2023-03-15 04:38] VITALS: BP 105/59
--- NOTE | 2023-03-15 06:03 | NUR ---
SUMMARY: PT A/OX4, IS INDEPENDENT IN ROOM AND PLEASANT/COOPERATIVE W/CARE. HE'S NON WT.BEARING ON L.FOOT AND AWARE OF LIMITATIONS. POST OP DX REMAINS C/D/I TO LT.2ND TOE AMPUTATION. IV ABX RECIEVED VIA FARHAT PICC LINE THEN SL'D. HE HAS KPAD IN PLACE TO BLE'S AD ANNALISE AND RECIEVES OXYCODONE PRN FOR TOLERABLE RELIEF OF ASSOCIATED PAIN. TRAZADONE PROVIDED PER PT REQUEST AT HS. NO ACUTE CHANGES, VSS/AFEBRILE. WCTM AND REPORT TO DAY RN.
[2023-03-15 06:51] LABS: Hematocrit 38.3 % (37.0-53.0); Hemoglobin 12.9 g/dL (13.5-17.5); Mean Corpuscular HGB 30.9 pg (26.0-34.0); Mean Corpuscular HGB Conc 33.7 g/dL (31.5-36.5); Mean Corpuscular Volume 92 fL (80-100); Mean Platelet Volume 9.3 fL (9.1-12.4); Platelet Count 529 K/mm3 (150-400); RDW Coefficient Variation 12.5 % (11.7-14.2); RDW Standard Deviation 41.9 fL (35.1-46.3); Red Blood Cell Count 4.17 M/mm3 (4.30-5.90); White Blood Cell Count 12.88 K/mm3 (4.00-11.30)
[2023-03-15 07:08] LABS: Bun/Creatinine Ratio 26.8 (12.0-20.0); Calcium, Blood 8.9 mg/dL (8.5-10.1); Creatinine, Blood 0.67 mg/dL (0.60-1.20); Potassium, Blood 4.4 mmol/L (3.5-5.5)
[2023-03-15 07:16] VITALS: BP 122/77
--- NOTE | 2023-03-15 12:48 | NUR ---
CALLED DR LAN'S OFFICE FOR WOUND CARE ORDERS, HAVE NOT HAD CALL BACK FROM OR HIS OFFICE AT [facility] TIME
[2023-03-15 15:56] VITALS: BP 116/72
--- NOTE | 2023-03-15 17:44 | NUR ---
FOOT DRESSING CHANGED PER V/O FROM DR LAN
--- NOTE | 2023-03-15 18:25 | NUR ---
PT HAS BEEN UP TO SHOWER TODAY. MEDCIATED PER EMAR. HE IS RESTING WELL IN BED. NADN. VSS. LT FOOT DRESSING WAS REPLACED TODAY. PT AND WENT FOR A WALK TODAY WITH HIM IN HIS WHEELCHAIR. PT WILL LIKELY REMAIN IN HOSPITAL UNTIL ANITBIOTICS ARE COMPLETE
--- NOTE | 2023-03-15 18:35 | NUR ---
DRESSING WAS CHANGED TODAY, AND DRESSED PER V/O FROM DR LAN
[2023-03-15 19:44] VITALS: BP 115/70
[2023-03-16 05:09] VITALS: BP 127/75
--- NOTE | 2023-03-16 06:56 | NUR ---
Shift Summary Pt AOx4, able to ambulate in room by walking on heel w/ L foot which he states his supervisor taping cleared him to do. Pt blood sugar was elevated at 268 last night and he requested long lasting insulin, the hospitalist said consult the day shift doctor. Pt c/o painful R foot, rcvd percocet per emar once and slept well through most of the night.
[2023-03-16 07:35] VITALS: BP 116/84
[2023-03-16 15:24] VITALS: BP 115/71
--- NOTE | 2023-03-16 19:29 | NUR ---
SHIFT SUMMARY NO ACUTE EVENTS DURING SHIFT. PATIENT MEDICATED FOR PAIN PER EMAR. BED IN LOW POSITION, CALL LIGHT IN REACH. PATIENT CALLS APPROPRIATLEY
[2023-03-16 20:05] VITALS: BP 132/76
[2023-03-17 03:02] VITALS: BP 121/62
--- NOTE | 2023-03-17 04:01 | NUR ---
SHIFT SUMMARY PATIENT HAD NO ACUTE CHANGES. AXOX 4 AND SBA W/FWW TO BR. VSS/AFEBRILE. DENIES CHEST PAIN, SOB, AND N/V. PICC LINE TERE ARM INTACT. IV ABX INFUSED. CBG 236. TRAZADONE 200 MG GIVEN PRN FOR INSOMNIA. PATIENT SLEPT MOST OF THE SHIFT. CALL LIGHT IN REACH. BED IN LOWEST POSITION. WILL CONTINUE TO MONITOR UNTIL DAY SHIFT NURSE ASSUMES CARE.
[2023-03-17 07:25] VITALS: BP 126/66
[2023-03-17 16:09] VITALS: BP 101/63
--- NOTE | 2023-03-17 19:24 | NUR ---
SHIFT SUMMARY PATIENT WITH NO ACUTE EVENTS DURING SHIFT. MEDICATED FOR PAIN PER EMAR. DRESSING CHANGE DONE AT 1630 TO LEFT TOE AMPUTATION. BED IN LOW POSITION, CALL LIGHT IN REACH. PATIENT CALLS APPROPRIATELY.
[2023-03-17 19:44] VITALS: BP 96/77
--- NOTE | 2023-03-18 04:26 | NUR ---
SHIFT SUMMARY PATIENT HAD NO ACUTE CHANGES. AXOX 4 AND SBA W/FWW TO BR. VSS/AFEBRILE. DENIES CHEST PAIN, SOB, AND N/V. TRAZADONE 200 MG GIVEN FOR INSOMIA PRN. PICC LINE TERE ARM INTACT. IV ABX INFUSED. REPORTED LEFT LEG PAIN AND PERCOCET 5 MG GIVEN PER EMAR. CBG 222. SLEPT MOST OF THE SHIFT AFTER TRAZADONE GIVEN. CALL LIGHT IN REACH. BED IN LOWEST POSITION. WILL CONTINUE TO MONITOR UNTIL DAY SHIFT NURSE ASSUMES CARE.
[2023-03-18 04:49] VITALS: BP 105/55
[2023-03-18 07:38] VITALS: BP 109/61
[2023-03-18 15:00] VITALS: BP 105/63
--- NOTE | 2023-03-18 20:03 | NUR ---
SHIFT SUMMARY NO ACUTE EVENTS DURING SHIFT. MEDICATED PER EMAR FOR PAIN AND INFECTION. BED IN LOW POSIITON. PATIENT CALLS APPROPRIATELY
[2023-03-18 20:35] VITALS: BP 127/79
== END 2023-03-18 22:30 | disposition home or self-care (01) | DRG 616 ==
LOC: ER 11:44 → MEDS 13:56 → ENPENDDIS 03-18 15:41 → MEDS 03-18 22:30
PROVIDERS: Internal Medicine; Student in an Organized Health Care Education/Training Program; ADMIT Internal Medicine
PROC: 3E03329 Introduction of Other Anti-infective into Peripheral Vein, Percutaneous Approach (ICD-10-PCS; principal; 2023-03-03)
PROC: 0Y6S0Z0 Detachment at Left 2nd Toe, Complete, Open Approach (ICD-10-PCS; 2023-03-09)
DX: E11.69 Type 2 diabetes mellitus with other specified complication (principal); A41.01 Sepsis due to Methicillin susceptible Staphylococcus aureus; L03.116 Cellulitis of left lower limb; M86.172 Other acute osteomyelitis, left ankle and foot; L97.526 Non-pressure chronic ulcer of other part of left foot with bone involvement without evidence of necrosis; E11.621 Type 2 diabetes mellitus with foot ulcer; Z66 Do not resuscitate; I10 Essential (primary) hypertension; F43.10 Post-traumatic stress disorder, unspecified; F17.210 Nicotine dependence, cigarettes, uncomplicated; E11.42 Type 2 diabetes mellitus with diabetic polyneuropathy; E78.5 Hyperlipidemia, unspecified; K21.9 Gastro-esophageal reflux disease without esophagitis; F41.9 Anxiety disorder, unspecified; F32.A Depression, unspecified; G89.4 Chronic pain syndrome; M79.671 Pain in right foot; E11.628 Type 2 diabetes mellitus with other skin complications; K59.00 Constipation, unspecified; Z88.8 Allergy status to other drugs, medicaments and biological substances; Z88.5 Allergy status to narcotic agent; Z79.899 Other long term (current) drug therapy; Z79.1 Long term (current) use of non-steroidal anti-inflammatories (NSAID); Z90.89 Acquired absence of other organs; Z98.890 Other specified postprocedural states
CPT/HCPCS: 36415; 73630; 73700; 73701; 80048; 80053; 80202; 82947; 83036; 85025; 85027; 85651; 86140; 87040; 87070; 87075; 87077; 87147; 87186; 87205; 88305; 88311; 93306; 93971; 96365; 96366; 96375; 99284-25; A9270; J0690; J0692; J0696; J1170; J1650; J1815; J1885; J2001; J2250; J2270; J2704; J3010; J3370; J7030; J7050; J7120; Q9967

== ENCOUNTER 2023-03-21 23:30 | Emergency (ER) | payer MEDICARE, OTHER ==
[~2023-03-21] VITALS: Ht 190.5 cm; Wt 97.5 kg
[2023-03-21 23:51] LABS: BASOPHILS ABSOLUTE AUTO 0.06 K/mm3 (0.00-0.23); BASOPHILS PERCENT AUTO 0 % (0-2); EOSINOPHILS ABSOLUTE AUTO 0.16 K/mm3 (0.00-0.68); EOSINOPHILS PERCENT AUTO 1 % (0-6); Hematocrit 39.9 % (37.0-53.0); Hemoglobin 13.9 g/dL (13.5-17.5); IMMATURE GRAN PERCENT AUTO 1 % (0-1); LYMPHOCYTES ABSOLUTE AUTO 3.01 K/mm3 (0.84-5.20); LYMPHOCYTES PERCENT AUTO 21 % (21-46); MONOCYTES ABSOLUTE AUTO 1.64 K/mm3 (0.16-1.47); MONOCYTES PERCENT AUTO 12 % (4-13); Mean Corpuscular HGB 30.8 pg (26.0-34.0); Mean Corpuscular HGB Conc 34.8 g/dL (31.5-36.5); Mean Corpuscular Volume 89 fL (80-100); Mean Platelet Volume 9.1 fL (9.1-12.4); NEUTROPHILS ABSOLUTE AUTO 9.22 K/mm3 (1.96-9.15); NEUTROPHILS PERCENT AUTO 65 % (41-73); Platelet Count 430 K/mm3 (150-400); RDW Coefficient Variation 12.6 % (11.7-14.2); RDW Standard Deviation 40.9 fL (35.1-46.3); Red Blood Cell Count 4.51 M/mm3 (4.30-5.90); White Blood Cell Count 14.19 K/mm3 (4.00-11.30)
[2023-03-22 00:07] LABS: Albumin, Blood 3.3 g/dL (3.4-5.0); Albumin/Globulin Ratio 0.8 (0.8-1.8); Bilirubin, Total 0.2 mg/dL (0.1-1.0); Bun/Creatinine Ratio 18.4 (12.0-20.0); Calcium, Blood 9.1 mg/dL (8.5-10.1); Creatinine, Blood 0.98 mg/dL (0.60-1.20); Globulin, Blood 4.3 g/dL (2.2-4.0); Potassium, Blood 4.4 mmol/L (3.5-5.5); Total Protein, Blood 7.6 g/dL (6.4-8.2)
[2023-03-22 04:15] VITALS: BP 97/68
== END 2023-03-22 04:54 | disposition home or self-care (01) ==
LOC: ER 23:30
PROVIDERS: Emergency Medicine
DX: R07.81 Pleurodynia (principal); I10 Essential (primary) hypertension; E11.9 Type 2 diabetes mellitus without complications; F43.10 Post-traumatic stress disorder, unspecified; F17.210 Nicotine dependence, cigarettes, uncomplicated
CPT/HCPCS: 71275; 80053; 84484; 85025; 93005; 93010; 96374; 96375; 99285-25; A9270; J1885; J3010; Q9967

== ENCOUNTER 2023-05-10 20:32 | Emergency (ER) | payer MEDICARE, OTHER ==
[~2023-05-10] VITALS: Ht 188 cm; Wt 86.2 kg
[2023-05-10 20:58] VITALS: BP 122/90
[2023-05-10 21:33] LABS: BASOPHILS ABSOLUTE AUTO 0.04 K/mm3 (0.00-0.23); BASOPHILS PERCENT AUTO 0 % (0-2); EOSINOPHILS PERCENT AUTO 3 % (0-6); Hematocrit 45.4 % (37.0-53.0); Hemoglobin 15.6 g/dL (13.5-17.5); IMMATURE GRAN ABSOLUTE AUTO 0.03 K/mm3 (0.00-0.10); IMMATURE GRAN PERCENT AUTO 0 % (0-1); LYMPHOCYTES ABSOLUTE AUTO 2.58 K/mm3 (0.84-5.20); LYMPHOCYTES PERCENT AUTO 25 % (21-46); MONOCYTES ABSOLUTE AUTO 0.95 K/mm3 (0.16-1.47); MONOCYTES PERCENT AUTO 9 % (4-13); Mean Corpuscular HGB 30.2 pg (26.0-34.0); Mean Corpuscular HGB Conc 34.4 g/dL (31.5-36.5); Mean Corpuscular Volume 88 fL (80-100); Mean Platelet Volume 9.2 fL (9.1-12.4); NEUTROPHILS ABSOLUTE AUTO 6.32 K/mm3 (1.96-9.15); NEUTROPHILS PERCENT AUTO 62 % (41-73); Platelet Count 295 K/mm3 (150-400); RDW Standard Deviation 45.2 fL (35.1-46.3); Red Blood Cell Count 5.16 M/mm3 (4.30-5.90); White Blood Cell Count 10.22 K/mm3 (4.00-11.30)
[2023-05-10 21:58] LABS: Albumin, Blood 3.7 g/dL (3.4-5.0); Albumin/Globulin Ratio 0.9 (0.8-1.8); Bilirubin, Total 0.3 mg/dL (0.1-1.0); Bun/Creatinine Ratio 14.2 (12.0-20.0); C-REACTIVE PROTEIN, EXT RANGE 1.76 mg/dL (0.000-0.300); Calcium, Blood 9.3 mg/dL (8.5-10.1); Creatinine, Blood 0.91 mg/dL (0.60-1.20); Globulin, Blood 4.3 g/dL (2.2-4.0); Potassium, Blood 4.2 mmol/L (3.5-5.5)
[2023-05-11] MEDS ORDERED: CLOTRIMAZOLE AF1524 TOP (00:17)
== END 2023-05-11 00:34 | disposition home or self-care (01) ==
LOC: ER 20:32
PROVIDERS: Student in an Organized Health Care Education/Training Program
DX: S93.601A Unspecified sprain of right foot, initial encounter (principal); I77.6 Arteritis, unspecified; B35.3 Tinea pedis; E11.9 Type 2 diabetes mellitus without complications; X50.9XXA Other and unspecified overexertion or strenuous movements or postures, initial encounter; Z79.84 Long term (current) use of oral hypoglycemic drugs; Z79.899 Other long term (current) drug therapy
CPT/HCPCS: 73610; 73630; 80053; 85025; 85651; 86140; 96374; 99283-25; A9270; J1885

== ENCOUNTER 2023-09-02 06:07 | Day surgery (SDC) | payer MEDICARE, OTHER ==
[~2023-09-02] VITALS: Ht 188 cm; Wt 97.3 kg
[~2023-09-02 06:07] MED LIST changes: +ALOGLIPTIN25 M1 PO; +ATOR40TA PO; +CLOTRIMAZOLE AF1524 TOP; +Cymbalta60 MG PO; +HUMULIN N100 UNIT/6 SC; +HYDHCL25 PO; +JARDIANCE25 MG; +LEVOTHYROXINE88 MC9; +MOBIC15 MG PO; +OMEGA-3 FISH O1 EA13; +OMEGA-3-FISH O1 EAC3; +TRAZ150T57 PO
[2023-09-02] MEDS ORDERED: CeFAZolin Sodium 2,000 MG VIAL ONE (06:25)
[2023-09-02] MEDS ORDERED: NS 50 ML IV ONE (06:26)
[2023-09-02] MEDS ORDERED: Lactated Ringer's 1,000 ML IV ONE (06:46)
[2023-09-02] MEDS ORDERED: EPINEPhrine HCl 1 MG/ML 1ML Amp ONE (07:11)
[2023-09-02] MEDS ORDERED: Ropivacaine 0.5% HCl/Pf 5 MG/ML 20ML VIAL ONE (07:11)
[2023-09-02] MEDS ORDERED: Dexamethasone Sod Phos 10 MG/ML 1ML VIAL ONE (07:18)
[2023-09-02] MEDS ORDERED: Bupivacaine 0.5% HCl 5 MG/ML 30MLVIAL ONE (07:18)
[2023-09-02] MEDS ORDERED: FentaNYL Citrate 50 MCG/ML 2 ML Injection ONE (07:18)
[2023-09-02] MEDS ORDERED: propofoL 20 ML IV ONE ×2 (07:32→07:37)
[2023-09-02] MEDS ORDERED: Rocuronium Bromide 10 MG/ML 5ML Injection IV ONE (07:33)
[2023-09-02] MEDS ORDERED: Ondansetron HCl 2 MG / ML 2ML Vial ONE (07:33)
[2023-09-02] MEDS ORDERED: EPINEPhrine HCl 1 MG/ML 1ML Amp XX ONE ×2 (07:45)
--- NOTE | 2023-09-02 07:50 | NUR ---
09/02/23 0750 Maryan Wagner POPITEAL BLOCK IN PRE OP FOR PAIN CONTROL BY DR LUNA.
[2023-09-02 11:02] VITALS: BP 122/78
== END 2023-09-02 10:59 | disposition home or self-care (01) ==
LOC: ORSCSDS 06:07
PROVIDERS: Podiatrist Foot & Ankle Surgery
PROC: 0SGH04Z Fusion of Right Tarsal Joint with Internal Fixation Device, Open Approach (ICD-10-PCS; principal; 2023-09-02 07:30)
PROC: 0SPH04Z Removal of Internal Fixation Device from Right Tarsal Joint, Open Approach (ICD-10-PCS; principal; 2023-09-02 07:30)
DX: M19.171 Post-traumatic osteoarthritis, right ankle and foot (principal); T84.84XA Pain due to internal orthopedic prosthetic devices, implants and grafts, initial encounter; I10 Essential (primary) hypertension; E11.9 Type 2 diabetes mellitus without complications; E78.5 Hyperlipidemia, unspecified; F17.210 Nicotine dependence, cigarettes, uncomplicated; E03.9 Hypothyroidism, unspecified; F41.9 Anxiety disorder, unspecified; Z79.4 Long term (current) use of insulin; K21.9 Gastro-esophageal reflux disease without esophagitis; Z79.899 Other long term (current) drug therapy
CPT/HCPCS: 82947; C1713; C1734; C1769; J0171; J0690; J1100; J2405; J2704; J2795; J3010